=== PATIENT | male | born 1990 | race Caucasian/White ===

== ENCOUNTER 2016-10-18 18:34 | Emergency (ER) | payer SELFPAY ==
[~2016-10-18] VITALS: Ht 188 cm; Wt 86.2 kg
[~2016-10-18 18:34] MED LIST: SULF1TAB24 PO
[2016-10-18 19:05] VITALS: BP 142/82
[2016-10-18] MEDS ORDERED: HYDR-971 PO (19:09)
[2016-10-18] MEDS ORDERED: AMOX500C PO (19:09)
--- NOTE | 2016-10-18 19:10 | PHYS DOC ---
Past Medical History Past Medical History: No Pertinent History Past Surgical History: Other Additional Past Surgical Histo: NASAL SURGERY Alcohol Use: None Drug Use: None Adult General Chief Complaint Chief Complaint: EARACHE/EAR PAIN [facility] HPI Patient is a 26 year old male presents emergency Department with complaint of bilateral ear pain, right greater than left for the past 4 days. Patient states she also began developing drainage from his right ear with the past 24 hours. He denies any injuries to his ears. He denies any swimming. He denies any history of diabetes. He denies antibiotic use within the past 90 days. Patient denies any fevers or chills. Denies sore throat. He denies any pre-existing illness involving cough and congestion. Review of Systems Review of Systems Constitutional: Denies fever or chills [] Eyes: Denies change in visual acuity, redness, or eye pain [] HENT: Denies nasal congestion or sore throat [] Respiratory: Denies cough or shortness of breath [] Cardiovascular: No additional information not addressed in HPI [] GI: Denies abdominal pain, nausea, vomiting, bloody stools or diarrhea [] : Denies dysuria or hematuria [] Musculoskeletal: Denies back pain or joint pain [] Integument: Denies rash or skin lesions [] Neurologic: Denies headache, focal weakness or sensory changes [] Endocrine: Denies polyuria or polydipsia [] Allergies Allergies Allergies Coded Allergies Type Severity Reaction Last Updated Verified cefaclor Allergy Intermediate 05/17/15 Yes Physical Exam Physical Exam Constitutional: Well developed, well nourished, no acute distress, non-toxic appearance. Patient is afebrile. HENT: Normocephalic, atraumatic, bilateral external ears normal, oropharynx moist, no oral exudates, nose normal. Right external ear canal is boggy and inflamed with a brownish mucopurulent drainage. The tympanic membrane is visualized and has surrounding inflammation around the borders of the tympanic membrane. There is no fluid meniscus. The margins of the umbo are clearly seen. There is no mastoiditis. Left ear canal is mildly inflamed with clear drainage. The left tympanic membrane is slightly bulging. The margins of the umbo are slightly distorted. There is a low fluid meniscus. There is no perforation. There is no mastoiditis. Eyes: PERRLA, EOMI, conjunctiva normal, no discharge. [] Neck: Normal range of motion, no tenderness, supple, no stridor. There is no cervical lymphadenopathy. Cardiovascular:Heart rate regular rhythm, no murmur [] Lungs & Thorax: Bilateral breath sounds clear to auscultation [] Abdomen: Bowel sounds normal, soft, no tenderness, no masses, no pulsatile masses. [] Skin: Warm, dry, no erythema, no rash. [] Back: No tenderness, no CVA tenderness. [] Extremities: No tenderness, no cyanosis, no clubbing, ROM intact, no edema. [] Neurologic: Alert and oriented X 3, normal motor function, normal sensory function, no focal deficits noted. [] Psychologic: Affect normal, judgement normal, mood normal. [] EKG EKG [] Radiology/Procedures Radiology/Procedures [] Course & Med Decision Making Course & Med Decision Making Pertinent Labs and Imaging studies reviewed. (See chart for details) [] Dragon Disclaimer Dragon Disclaimer This electronic medical record was generated, in whole or in part, using a voice recognition dictation system. Departure Departure Impression: Primary Impression: Otitis externa Additional Impression: Otitis media Disposition: HOME, SELF-CARE Condition: GOOD Referrals: NO PCP (PCP) Patient Instructions: Otitis Externa, [id number], Otitis Media, Adult, Easy- to-Read Additional Instructions: 1. You have an infection in your right ear canal an infection behind her left eardrum. Your left ear canal is also beginning to become inflamed and irritated. 2. Take the medication as prescribed. 3. Review the discharge instructions for self-care and reasons to return to the emergency department. 4. Use the pamphlet provided for assistance in finding a primary care doctor in which you can call Thursday to schedule follow-up appointment to have ears rechecked by or Thursday. Scripts Hydrocodone/Apap 5-325 (Gardiner 5-325 Tablet)1 Each Tablet1 Tab PO PRN Q6HRS PRN PAIN #15 TAB Prov:KARELY SHARPE 10/18/16 Amoxicillin 500 Mg [id number] Mg PO TID ear infection #30 CAP Prov:KARELY SHARPE 10/18/16 Problem Qualifiers KARELY SHARPE Oct 18, 2016 19:10
== END 2016-10-18 19:25 | disposition home or self-care (01) ==
LOC: ER 18:34
DX: H60.93 Unspecified otitis externa, bilateral (principal); H66.93 Otitis media, unspecified, bilateral; Z88.1 Allergy status to other antibiotic agents
CPT/HCPCS: 99283

== ENCOUNTER 2021-10-09 13:22 | Emergency (ER) | payer SELFPAY ==
[~2021-10-09] VITALS: Ht 190.5 cm; Wt 47.0 kg
[~2021-10-09 13:22] MED LIST changes: +AMOX500C PO; +HYDR-3164 PO
[2021-10-09 13:44] VITALS: BP 122/80
--- NOTE | 2021-10-09 14:00 | PHYS DOC ---
Past Medical History Past Medical History: No Pertinent History Additional Past Medical Histor: PVD Past Surgical History: Other Additional Past Surgical Histo: NASAL SURGERY Smoking Status: Current Every Day Smoker Additional Information: VAPE Alcohol Use: Occasionally Drug Use: None General Adult EDM: Chief Complaint: LOWER EXT PAIN HPI: HPI: Patient is a 31-year-old male who presents to the emergency department ulcerations to his feet. Patient reports that he has a "vein disease" and has to have numerous venous surgeries. Patient reports that he does follow-up with the wound clinic and does receive wound debridement when he needs it. Patient presents to the emergency department because he has ulcerations to his ankles that have increased discoloration surrounding them. Patient does report decreased sensation to bilateral feet that is chronic. Patient denies unilat eral leg swelling, chest pain, shortness of breath, vomiting, history of blood clots, fevers. Review of Systems: Review of Systems: Constitutional: negative unless reported in HPI Eyes: negative unless reported in HPI HENT: negative unless reported in HPI Respiratory: negative unless reported in HPI Cardiovascular: negative unless reported in HPI GI: negative unless reported in HPI : negative unless reported in HPI Musculoskeletal: negative unless reported in HPI Integument: negative unless reported in HPI Neurologic: negative unless reported in HPI Endocrine: negative unless reported in HPI Lymphatic: negative unless reported in HPI Psychiatric: negative unless reported in HPI Heart Score: C/O Chest Pain: No Risk Factors: Risk Factors: DM, Current or recent (<one month) smoker, HTN, HLP, family history of CAD, obesity. Risk Scores: Score 0 - 3: 2.5% MACE over next 6 weeks - Discharge Home Score 4 - 6: 20.3% MACE over next 6 weeks - Admit for Clinical Observation Score 7 - 10: 72.7% MACE over next 6 weeks - Early Invasive Strategies Allergies: Allergies: Allergies Coded Allergies Type Severity Reaction Last Updated Verified cefaclor Allergy Intermediate 05/17/15 Yes Physical Exam: PE: Constitutional: Well developed, well nourished, no acute distress, non-toxic appearance. [] HENT: Normocephalic, atraumatic, bilateral external ears normal, oropharynx moist, no oral exudates, nose normal. [] Eyes: PERRL, EOMI, conjunctiva normal, no discharge. [] Neck: Normal range of motion, no stridor Cardiovascular:Heart rate regular rhythm, no murmur [] Lungs & Thorax: Bilateral breath sounds clear to auscultation [] Abdomen: Bowel sounds normal, soft, no tenderness, no masses, no pulsatile masses. [] Skin: Warm, dry, purple discoloration noted to bilateral feet with varicose veins and superficial veins noted, patient has circular ulcerations to medial aspects of bilateral ankle approximately 2 cm in diameter that are scabbed over with purple discoloration surrounding them. Patient does not have any redness, warmth or drainage noted to his feet. Back: Normal range of motion Extremities: No tenderness, no cyanosis, no clubbing, ROM intact, 1+ edema to bilateral lower extremities Neurologic: Alert and oriented X 3, normal motor function, normal sensory function, no focal deficits noted. [] Psychologic: Affect normal, judgement normal, mood normal. [] Current Patient Data: Labs: Laboratory Tests Test 10/09/21 14:28 White Blood Count 7.9 x10^3/uL Red Blood Count 4.87 x10^6/uL Hemoglobin 13.8 g/dL Hematocrit 40.4 % Mean Corpuscular Volume 83 fL Mean Corpuscular Hemoglobin 28 pg Mean Corpuscular Hemoglobin Concent 34 g/dL Red Cell Distribution Width 13.3 % Platelet Count 334 x10^3/uL Neutrophils (%) (Auto) 56 % Lymphocytes (%) (Auto) 30 % Monocytes (%) (Auto) 8 % Eosinophils (%) (Auto) 6 % Basophils (%) (Auto) 1 % Neutrophils # (Auto) 4.4 x10^3/uL Lymphocytes # (Auto) 2.4 x10^3/uL Monocytes # (Auto) 0.6 x10^3/uL Eosinophils # (Auto) 0.4 x10^3/uL Basophils # (Auto) 0.1 x10^3/uL D-Dimer (Karen) 0.43 ug/mlFEU Sodium Level 140 mmol/L Potassium Level 3.9 mmol/L Chloride Level 104 mmol/L Carbon Dioxide Level 26 mmol/L Anion Gap 10 Blood Urea Nitrogen 9 mg/dL Creatinine 0.8 mg/dL Estimated GFR (Cockcroft-Gault) 112.0 BUN/Creatinine Ratio 11 Glucose Level 132 mg/dL Calcium Level 8.8 mg/dL Total Bilirubin 0.3 mg/dL Aspartate Amino Transf (AST/SGOT) 12 U/L Alanine Aminotransferase (ALT/SGPT) 33 U/L Alkaline Phosphatase 70 U/L Total Protein 7.8 g/dL Albumin 4.0 g/dL Albumin/Globulin Ratio 1.1 Vital Signs: Vital Signs Date Time Temp Pulse Resp B/P (MAP) Pulse Ox O2 Delivery O2 Flow Rate FiO2 10/09/21 13:44 98.0 88 12 122/80 (94) 99 Room Air 98.0 EKG: EKG: [] Radiology/Procedures: Radiology/Procedures: [] Course & Med Decision Making: Course & Med Decision Making Pertinent Labs and Imaging studies reviewed. (See chart for details) [] Patient presents to the emergency department for ulcerations to his feet. Patient has a history of peripheral vascular disease and reports he has to see wound care and has had venous surgeries in the past. Patient does have bilateral lower extremity edema which is chronic for him. He does have varicosities to his feet and superficial veins that are present. His Wells score is 1 indicating moderate risk for DVT. He denies any shortness of breath, chest pain, unilateral leg swelling. Blood work obtained in the emergency department and a D-dimer was obtained. Work was unremarkable. Patient did not have elevated D-dimer. Patient be treated with an antibiotic. Patient will be advised to discontinue smoking and follow-up with wound care. I discussed with patient all findings as well as the need to follow-up with PCP for further evaluation and treatment or return to the ER if any new or worsening symptoms. Strict return precautions were also discussed at length. Patient voiced understanding and agreement with the plan. Patient is hemodynamically stable at the time of disposition. Joan Disclaimer: Joan Disclaimer: This electronic medical record was generated, in whole or in part, using a voice recognition dictation system. Departure Departure Impression: Primary Impression: Cellulitis Qualified Codes: L03.818 - Cellulitis of other sites Disposition: HOME / SELF CARE / HOMELESS Condition: GOOD Referrals: NO PCP (PCP) Patient Instructions: Cellulitis, Peripheral Vascular Disease Additional Instructions: You were seen in the emergency department today for ulcerations to your feet. Your blood work was unremarkable. You will be treated with an antibiotic. Please start and finish the antibiotic completely. You will need to follow-up with wound care immediately. Please discontinue smoking. Follow-up with your primary care provider tomorrow regarding your ER visit. Return to the emergency department if you develop increased swelling to your leg, chest pain, shortness of breath, intractable vomiting, high fevers refractory to treatment or worsening of your wounds as evidenced by increased redness/warmth/drainage. EMERGENCY DEPARTMENT GENERAL DISCHARGE INSTRUCTIONS Thank you for coming to [facility] Emergency Department (ED) today and trusting us with you care. We trust that you had a positive experience in our Emergency Department. If you wish to speak to the department management, you may call the Director at [phone]. YOUR FOLLOW UP INSTRUCTIONS ARE FOLLOWS: 1. Do you have a private Doctor? If you do not have a private doctor, please ask for a resource list of physicians or clinics that may be able to assist you with follow up care. 2. The Emergency Physicain has interpreted your x-rays. The X-Ray specialist will also review them. If there is a change in the findings, you will be notified in 48 hours when at all possible. 3. A lab test or culture has been done, your results will be reviewed and you will be notified if you need a change in treatment. ADDITIONAL INSTRUCTIONS AND INFORMATION: 1. Your care today has been supervised by a physician who is specially trained in emergency care. Many problems require more than one evaluation for a complete diagnosis and treatment. We recommend that you schedule your follow up appointment as recommended to ensure complete treatment of you illness or injury. If you are unable to obtain follow up care and continue to have a problem, or if your condition worsens, we recommend that you return to the ED. 2. We are not able to safely determine your condition over the phone nor are we able to give sound medical advice over the phone. For these safety reasons, if you call for medical advice we will ask you to come to the ED for further evaluation. 3. If you have any questions regarding these discharge instructions please call the ED at [phone]. SAFETY INFORMATION: In the interest of safety, wellness, and injury prevention; we encourage you to wear your sealbelt, if you smoke; quite smoking, and we encourage family to use a protective helmet for bicycling and other sporting events that present an increased risk for head injury. IF YOUR SYMPTOMS WORSEN OR NEW SYMPTOMS DEVELOP, OR YOU HAVE CONCERNS ABOUT YOUR CONDITION; OR IF YOUR CONDITION WORSENS WHILE YOU ARE WAITING FOR YOUR FOLLOW UP APPOINTMENT; EITHER CONTACT YOUR PRIMARY CARE DOCTOR, THE PHYSICIAN WHOSE NAME AND NUMBER YOU WERE GIVEN, OR RETURN TO THE ED IMMEDIATELY. Scripts Clindamycin Hcl (CLINDAMYCIN HCL) 150 Mg Capsule 450 MG PO TID for 7 Days, #63 CAP 0 Refills Prov: MATEO GONSALEZ APRN 10/09/21 MATEO GONSALEZ APRN Oct 09, 2021 13:59
[2021-10-09 14:35] LABS: BASO # 0.1 x10^3/uL (0.0-0.2); BASO % 1 % (0-3); EOS # 0.4 x10^3/uL (0.0-0.7); EOS % 6 % (0-3); HEMATOCRIT 40.4 % (39.0-53.0); HEMOGLOBIN 13.8 g/dL (13.0-17.5); LYMPH # 2.4 x10^3/uL (1.0-4.8); LYMPH % 30 % (24-48); MEAN CORPUSCULAR HEMOGLOBIN 28 pg (25-35); MEAN CORPUSCULAR HGB CONC 34 g/dL (31-37); MEAN CORPUSCULAR VOLUME 83 fL (79-100); MONO # 0.6 x10^3/uL (0.0-1.1); MONO % 8 % (0-9); NEUT # 4.4 x10^3/uL (1.8-7.7); NEUT % 56 % (31-73); PLATELET COUNT 334 x10^3/uL (140-400); RED BLOOD COUNT 4.87 x10^6/uL (4.30-5.70); RED CELL DISTRIBUTION WIDTH 13.3 % (11.5-14.5); WHITE BLOOD COUNT 7.9 x10^3/uL (4.0-11.0)
[2021-10-09 14:46] LABS: CALCIUM 8.8 mg/dL (8.5-10.1); CREATININE 0.8 mg/dL (0.7-1.3); POTASSIUM 3.9 mmol/L (3.5-5.1)
[2021-10-09 14:53] LABS: ALBUMIN/GLOBULIN RATIO 1.1 (1.0-1.7); TOTAL BILIRUBIN 0.3 mg/dL (0.2-1.0); TOTAL PROTEIN 7.8 g/dL (6.4-8.2)
[2021-10-09] MEDS ORDERED: CLIN150C16 PO (15:03)
== END 2021-10-09 15:04 | disposition home or self-care (01) ==
LOC: ER 13:22
DX: L03.818 Cellulitis of other sites (principal); L97.529 Non-pressure chronic ulcer of other part of left foot with unspecified severity; L97.519 Non-pressure chronic ulcer of other part of right foot with unspecified severity; F17.200 Nicotine dependence, unspecified, uncomplicated; Z88.1 Allergy status to other antibiotic agents
CPT/HCPCS: 36415; 80053; 85025; 85379; 99283